=== PATIENT | male | born 1970 | race Caucasian/White ===

== ENCOUNTER 2023-08-31 22:34 | Emergency (ER) | payer BC | END 2023-09-01 00:57 | disposition home or self-care (01) | LOC: JP.ED 22:34 | DX: S93.402A Sprain of unspecified ligament of left ankle, initial encounter (principal); E78.00 Pure hypercholesterolemia, unspecified; I10 Essential (primary) hypertension; E11.9 Type 2 diabetes mellitus without complications; F17.210 Nicotine dependence, cigarettes, uncomplicated; Z79.84 Long term (current) use of oral hypoglycemic drugs; Z79.899 Other long term (current) drug therapy; X50.1XXA Overexertion from prolonged static or awkward postures, initial encounter | CPT/HCPCS: 73610-26-LT; 73610-LT; 99283 ==